=== PATIENT | female | born 1960 | race Caucasian/White ===

== ENCOUNTER → 2016-07-08 16:56 | Outpatient (CLI) | payer MEDICARE ==
[2014-02-26 08:43] VITALS: BMI 29.3
[~2016-07-08 16:56] MED LIST: ATARAX 25 MG TA25 MG PO; BAYER CHEWABLE81 MG PO; BUSPAR 15 MG TA15 MG PO; BUSPAR10 MG PO; BYSTOLIC10 MG PO; BYSTOLIC5 MG PO; DALIRESP500 MCG PO; DULERA 100 MCG8.8 GM INH; EFFEXOR XR150 MG PO; HYDROCODON-ACE1 EAC6 PO; HYDROXYZINE HCL50 MG PO; IPRAT-ALBUT 0.5-3 ML UPD; NAPROSYN125 MG/5 M; NAPROSYN500 MG PO; PRAVACHOL40 MG PO; SEROQUEL300 MG PO; SINGULAIR10 MG PO; SPIRIVA18 MCG INH; TRIGLIDE160 MG PO
== END | disposition home or self-care (01) ==
LOC: D.MAMMO 10:30
DX: N63 Unspecified lump in breast (principal)

== ENCOUNTER 2017-07-03 09:26 | Day surgery (SDC) | payer MEDICARE ==
[~2017-07-03] VITALS: Ht 152.4 cm; Wt 73.6 kg
--- NOTE | ~2017-07-03 | OP ---
PATIENT NAME: JOSE BEVERLY MEDICAL RECORD: [id number] :62 [facility] ADMISSION DATE: SURGEON: DEVAUGHN WHITNEY DO DATE OF OPERATION: 07/03/2017 PROCEDURE: EGD with biopsies. INDICATION FOR PROCEDURE: Heartburn, abnormal weight loss, diarrhea. SCOPE: Olympus video gastroscope. MEDICATION: Propofol 250 mg IV per anesthesia. ESTIMATED BLOOD LOSS: Minimal. COMPLICATIONS: None. FINDINGS: Informed consent was given. The patient was made comfortable with the above medication. After reaching an adequate level of sedation by slow IV push, the patient was placed on her left side. The endoscope was advanced under direct visualization through the mouth to the second portion of the duodenum. Within the esophagus itself, the mucosa of all portions had an appearance as if it was sloughing. Random biopsies were taken in the midesophagus for histology. At the GE junction, there was some evidence of LA class A reflux-induced esophagitis with a single superficial ulcer, also at the GE junction. There was no bleeding or bleeding stigmata associated with the ulceration. Cold forceps biopsies were taken at the GE junction to rule out Medellin's. The endoscope was advanced beyond the GE junction in the stomach and retroflexed to view the cardia or a small sliding hiatal hernia without ulcers or erosions present. The fundus of the stomach appeared normal. Throughout the body, antrum, and prepyloric regions, there were patchy areas of erythema, granularity, and some congestion consistent with gastritis. Random biopsies were taken to submit for histopathology and to rule out H. pylori. The endoscope was advanced beyond the pylorus into the duodenum, where the entire examined duodenum appeared normal. Regarding her symptoms of diarrhea, random biopsies were taken in the bulb and second portion of the duodenum to rule out flattening of the villi and to look for other etiologies that could cause loose stools. The endoscope was then withdrawn from the patient. The patient tolerated the procedure well and there were no complications. IMPRESSION: 1. LA class A reflux-induced esophagitis. 2. A single, superficial esophageal ulcer at the GE junction. 3. Small sliding hiatal hernia. 4. Gastritis. PLAN AND RECOMMENDATIONS: 1. Discharge home when recovery parameters are met. 2. Followup biopsy specimen results. 3. Omeprazole 40 mg daily in the a.m. times 60 days. If insurance does not cover this, I recommend an equivalent PPI at 40 mg daily dosing. 4. Proceed with colonoscopy as scheduled. TRANSINT:[id number] Voice Confirmation ID: [id number] DOCUMENT ID: [id number] OPERATIVE REPORT [id number] JOSE BEVERLY,DEVAUGHN Avalos DO at 1524 CC: [id number] DICTATION DATE: 07/03/17 1038 TELESERVICES REPRESENTATIVE: 07/03/[address] [facility] 07/03/[address] [address]
[2017-07-03] MEDS ORDERED: ANORO ELLIPTA1 EACH INH (09:52)
[2017-07-03 09:54] LABS: HEMATOCRIT 38.5 % (36.0-48.0); HEMOGLOBIN 12.5 g/dL (12-16); MCHC 32.5 g/dL (31.0-37.0); MCV 98.5 fL (80.0-100.0); MEAN PLATELET VOLUME 9.7 fL (7.4-10.4); RBC 3.91 10x6/uL (4.00-5.40); WBC 9.4 10x3/uL (4.8-10.8)
[2017-07-03 09:59] VITALS: BP 112/61; Ht 152.4 cm; Wt 73.6 kg
[2017-07-03 10:45] LABS: ANION GAP 14.1 mmol/L (8-16); CALCIUM 8.8 mg/dL (8.5-10.1); CARBON DIOXIDE 23.8 mmol/L (21.0-32.0); POTASSIUM - SERUM 3.9 mmol/L (3.5-5.1)
== END 2017-07-03 11:34 | disposition home or self-care (01) ==
LOC: D.OPS 09:26
PROVIDERS: Anesthesiology; Internal Medicine Gastroenterology
DX: K21.0 Gastro-esophageal reflux disease with esophagitis (principal); K44.9 Diaphragmatic hernia without obstruction or gangrene; K22.10 Ulcer of esophagus without bleeding; K29.70 Gastritis, unspecified, without bleeding; Z01.812 Encounter for preprocedural laboratory examination; R63.4 Abnormal weight loss

== ENCOUNTER 2017-07-10 08:14 | Day surgery (SDC) | payer MEDICARE ==
[~2017-07-10] VITALS: Ht 152.4 cm; Wt 73.6 kg
--- NOTE | ~2017-07-10 | OP ---
PATIENT NAME: JOSE BEVERLY MEDICAL RECORD: [id number] :62 LOCATION:D.[facility] ADMISSION DATE: SURGEON: DEVAUGHN WHITNEY DO DATE OF OPERATION: 07/10/2017 PROCEDURE: Colonoscopy with polypectomy. INDICATIONS FOR PROCEDURE: History of colon polyps, family history of colon cancer in her father, change in bowel habits, diarrhea, abnormal weight loss. SCOPE: Olympus video pediatric colonoscope. MEDICATIONS: Propofol 400 mg IV per anesthesia. WITHDRAWAL TIME: 20 minutes. ESTIMATED BLOOD LOSS: Minimal. COMPLICATIONS: None. FINDINGS: Informed consent was given. The patient was made comfortable with the above medication. After reaching an adequate level of sedation by slow IV push, the patient was placed on her left side. A digital rectal examination was performed and was normal. The endoscope was then advanced under direct visualization through the rectum to the cecum with visualization of the appendiceal orifice and ileocecal valve. The scope was slowly withdrawn. Mucosa was carefully examined. The prep quality was fair. An extensive amount of time was spent irrigating and aspirating fluid for better visualization of the wall of the colon. There were 5 polyps visualized on today's examination. The first was located in the descending colon. It was a benign appearing sessile polyp, which measured approximately 3 mm in diameter. It was removed in 1 piece using hot forceps and completely retrieved. There were 4 other polyps, which were benign-appearing and sessile located in the sigmoid colon. They ranged in size from 2-4 mm in diameter and all removed in 1 piece using hot forceps and completely retrieved. In the left side of the colon, there was moderate diverticulosis without diverticulitis involving the descending and sigmoid colon. Retroflexion was performed in the rectum with a normal appearing rectal wall. There were no other findings on this examination. The endoscope was withdrawn from the patient. The patient tolerated the procedure well and there were no complications. IMPRESSION: 1. Five polyps as described above, removed using hot forceps. 2. Moderate diverticulosis of the left side of the colon. 3. Otherwise, normal colonoscopy. Random biopsies were collected to rule out microscopic colitis and stool collection was performed to rule out infectious colitis. PLAN AND RECOMMENDATIONS: 1. Discharge home when recovery parameters are met. 2. High fiber diet. 3. Continue current medications. 4. Trial of dicyclomine 20 mg b.i.d. p.r.n. while awaiting biopsy results and stool studies. 5. Recall colonoscopy in 3-5 years. OPERATIVE REPORT [id number] JOSE BEVERLY TRANSINT:[id number] Voice Confirmation ID: [id number] DOCUMENT ID: [id number] DEVAUGHN WHITNEY DO at 1524 CC: [id number] DICTATION DATE: 07/10/17 1059 ORAL SURGERY ASSISTANT: 07/10/17 1306 [facility] 07/10/[address] [address]
[~2017-07-10 08:14] MED LIST changes: +ANORO ELLIPTA1 EACH INH
[2017-07-10] MEDS ORDERED: ESTRACE1 MG PO (08:41)
[2017-07-10] MEDS ORDERED: PROTONIX40 MG PO (08:42)
[2017-07-10] MEDS ORDERED: PREDNISONE5 MG PO (08:42)
[2017-07-10] MEDS ORDERED: BREO ELLIPTA 11 EACH INH (08:43)
[2017-07-10 08:50] VITALS: Ht 152.4 cm; Wt 73.6 kg
[2017-07-10 09:28] LABS: HEMOGLOBIN 12.7 g/dL (12-16); MCH 32.6 pg (26.0-34.0); MCHC 33.4 g/dL (31.0-37.0); MCV 97.4 fL (80.0-100.0); MEAN PLATELET VOLUME 9.7 fL (7.4-10.4); RBC 3.9 10x6/uL (4.00-5.40); RDW 13.7 % (11.5-14.5)
== END 2017-07-10 11:46 | disposition home or self-care (01) ==
LOC: D.OPS 08:14
PROVIDERS: Anesthesiology
DX: D12.5 Benign neoplasm of sigmoid colon (principal); Z80.0 Family history of malignant neoplasm of digestive organs; R63.4 Abnormal weight loss; R19.7 Diarrhea, unspecified; F17.200 Nicotine dependence, unspecified, uncomplicated; J45.909 Unspecified asthma, uncomplicated; J44.9 Chronic obstructive pulmonary disease, unspecified; K21.9 Gastro-esophageal reflux disease without esophagitis; Z01.812 Encounter for preprocedural laboratory examination

== ENCOUNTER 2017-12-10 10:28 | Inpatient (IN) | payer MEDICARE ==
[~2017-12-10] VITALS: Ht 152.4 cm; Wt 74.4 kg
--- NOTE | ~2017-12-10 | CN ---
PATIENT NAME:JOSE BEVERLY MEDICAL RECORD: [id number] : 62 LOCATION:D[facility] ADMIT DATE: 12/10/17 ACCOUNT: [id number] CONSULTING PHYSICIAN: ADELAIDE RILEY MD REFERRING PHYSICIAN: ROBERT HERNANDEZ MD DATE OF CONSULTATION: 12/10/2017 CONSULT REQUESTING PHYSICIAN: Robert Hernandez MD REASON FOR CONSULTATION: Acute exacerbation of COPD, pneumonia. HISTORY OF PRESENT ILLNESS: Ms. Beverly is a 57-year-old female who has a history of COPD. According to the patient, she was very sick. On Monday, she was seen at PCP's office, was given steroid injection as well as Levaquin, but the patient's shortness of breath was getting worse and the patient came into the ER. On evaluation, found out that she has infiltrate in right lower lobe. According to the patient, she has shortness of breath with mild exertion, even at rest. She is not sleeping because of the shortness of breath. She hears herself wheezing. There is cough with yellow-greenish color sputum production. REVIEW OF THE SYSTEMS: As in history of present illness. PAST MEDICAL HISTORY: 1. History of mild CVA. 2. COPD. 3. Peripheral vascular disease. 4. Coronary artery disease. 5. History of MD. 6. Bipolar disorder and depression. PAST SURGICAL HISTORY: 1. Cholecystectomy. 2. Cardiac catheterization and ablation procedure in the past. MEDICATIONS: [employer] was reviewed. ALLERGIES: SHE IS ALLERGIC TO IODINE. PERSONAL AND SOCIAL HISTORY: The patient is still current everyday smoker. She is nondrinker. FAMILY HISTORY: Noncontributory. PHYSICAL EXAMINATION: GENERAL: Now, the patient is lying comfortably in bed. She is not in acute distress. VITAL SIGNS: The blood pressure is 146/94, pulse is 87, respiration is 22, temperature is 97, SpO2 is 92% on 2 liters nasal cannula. HEENT: Conjunctivae are pink. Sclerae are not icteric. NECK: Neck is supple. No JVD. CHEST: There are crackles at the right base and wheeze on forceful expiration. HEART: Rhythm regular. Normal sound. No murmur. ABDOMEN: Abdomen is soft. Bowel sounds present. No hepatosplenomegaly. RECTAL: Deferred. CONSULT REPORT [id number] JOSE BEVERLY EXTREMITIES: No cyanosis. No clubbing. There is no pedal edema. SKIN: The skin is warm. Normal turgor. CENTRAL NERVOUS SYSTEM: The patient is awake and alert. There is no obvious cranial nerve abnormality. The gait was not tested. CHEST RADIOGRAPH: There is infiltrate in right lower lobe. LABORATORY DATA: CBC; WBC 11.9, hemoglobin 13.2, hematocrit 39, and platelet count 291. Chemistry; sodium 134, potassium 3.9, BUN is 6, creatinine is 1, and glucose 95. IMPRESSION: 1. Acute hypoxic respiratory failure. The pulse ox is 92% on 2 liters. 2. Acute exacerbation of COPD. 3. Pneumonia, right lower lobe, most likely community-acquired pneumonia. 4. Tobacco dependence syndrome. 5. Dyspnea on exertion. 6. Gastroesophageal reflux disease. 7. Peripheral vascular disease. RECOMMENDATION: 1. Continue supplemental oxygen. 2. Levaquin IV, Rocephin IV, methylprednisolone IV. 3. Singulair 10 mg a day. 4. Albuterol and ipratropium nebulizer q. 4 hourly. 5. Brovana and budesonide nebulizer b.i.d. 6. The patient was counseled to quit smoking. 7. Followup labs and chest radiograph. Dr. Hernandez, thank you for involving me in the care of Ms. Beverly. TRANSINT:[id number] Voice Confirmation ID: [id number] DOCUMENT ID: [id number] ADELAIDE RILEY MD CC: [id number] DICTATION DATE: 12/10/171742 DRY WALL INSTALLATIONS MECHANIC: 12/10/171948 ADM IN [place] [address] [place] [address]
[~2017-12-10 10:28] MED LIST changes: +BREO ELLIPTA 11 EACH INH; +ESTRACE1 MG PO; +PREDNISONE5 MG PO; +PROTONIX40 MG PO
[2017-12-10] MEDS ORDERED: INCRUSE ELLI62.5 MCG INH (10:33)
[2017-12-10] MEDS ORDERED: DALIRESP500 MCG PO (10:34)
[2017-12-10] MEDS ORDERED: BYSTOLIC2.5 MG PO (10:37)
[2017-12-10] MEDS ORDERED: LEVAQUIN750 MG PO (10:39)
[2017-12-10] MEDS ORDERED: BENTYL 20 MG TA20 MG PO (10:40)
[2017-12-10 10:43] LABS: BASOPHILS 0.2 % (0-2); EOSINOPHILS 0.3 % (0-7); HEMOGLOBIN 13.2 g/dL (12-16); IMMATURE GRANULOCYTES 0.3 % (0-5); LYMPHOCYTES 15.6 % (15-50); MCH 32.1 pg (26.0-34.0); MCHC 33.8 g/dL (31.0-37.0); MCV 94.9 fL (80.0-100.0); MEAN PLATELET VOLUME 9.7 fL (7.4-10.4); MONOCYTES 11.3 % (2-11); NEUTROPHILS 72.3 % (40-80); PLATELET COUNT 291 10x3/uL (130-400); RBC 4.11 10x6/uL (4.00-5.40); RDW 13.3 % (11.5-14.5); WBC 11.9 10x3/uL (4.8-10.8)
[2017-12-10 11:06] LABS: ALBUMIN 3.7 g/dL (3.4-5.0); ALKALINE PHOSPHATASE 43 U/L (46-116); ALT (SGPT) 24 U/L (10-68); BILIRUBIN - TOTAL 0.23 mg/dL (0.2-1.3); CALC OSMOLALITY 265 mosm/kg (275-300); CALCIUM 8.9 mg/dL (8.5-10.1); CARBON DIOXIDE 28.3 mmol/L (21.0-32.0); CHLORIDE - SERUM 99 mmol/L (98-107); GLUCOSE 95 mg/dL (74-106); POTASSIUM - SERUM 3.9 mmol/L (3.5-5.1); PROTEIN - SERUM 7.6 g/dL (6.4-8.2); SODIUM 134 mmol/L (136-145); UREA NITROGEN 6 mg/dL (7-18); eGFR NON AFRICAN AMERICAN 61 mL/min (90-120)
[2017-12-10 11:11] LABS: PRO BNP 231 pg/mL (0-125)
[2017-12-10 11:15] LABS: TROPONIN-I < 0.017 ng/mL (0.000-0.060)
[2017-12-10 13:27] VITALS: BMI 32.0
[2017-12-10 20:23] VITALS: BP 137/76
[2017-12-11 04:21] VITALS: BP 132/65
[2017-12-11 05:34] LABS: BASOPHILS 0 % (0-2); EOSINOPHILS 0 % (0-7); HEMATOCRIT 36.7 % (36.0-48.0); HEMOGLOBIN 12.3 g/dL (12-16); IMMATURE GRANULOCYTES 0.3 % (0-5); MCH 31.7 pg (26.0-34.0); MCHC 33.5 g/dL (31.0-37.0); MCV 94.6 fL (80.0-100.0); MEAN PLATELET VOLUME 9.7 fL (7.4-10.4); MONOCYTES 4.9 % (2-11); NEUTROPHILS 84.8 % (40-80); PLATELET COUNT 279 10x3/uL (130-400); RBC 3.88 10x6/uL (4.00-5.40); RDW 13.3 % (11.5-14.5)
[2017-12-11 05:45] LABS: WBC 6.5 10x3/uL (4.8-10.8)
[2017-12-11 05:56] LABS: ALBUMIN 3.4 g/dL (3.4-5.0); BILIRUBIN - TOTAL 0.28 mg/dL (0.2-1.3); CALCIUM 8.7 mg/dL (8.5-10.1); CARBON DIOXIDE 28.7 mmol/L (21.0-32.0); CREATININE - SERUM 0.9 mg/dL (0.6-1.3)
[2017-12-11 05:59] LABS: ANION GAP 10.6 mmol/L (8-16); POTASSIUM - SERUM 3.3 mmol/L (3.5-5.1)
[2017-12-11 08:20] VITALS: BP 145/76
[2017-12-11 11:53] VITALS: BP 129/72
[2017-12-11 13:12] VITALS: Ht 152.4 cm; Wt 74.4 kg
[2017-12-11 16:20] VITALS: BP 122/61
[2017-12-11 22:48] VITALS: BP 124/61
[2017-12-12 04:35] VITALS: BP 105/65
[2017-12-12 05:34] LABS: BASOPHILS 0 % (0-2); EOSINOPHILS 0 % (0-7); HEMATOCRIT 35.3 % (36.0-48.0); HEMOGLOBIN 11.9 g/dL (12-16); LYMPHOCYTES 13.5 % (15-50); MCH 31.8 pg (26.0-34.0); MCHC 33.7 g/dL (31.0-37.0); MCV 94.4 fL (80.0-100.0); MEAN PLATELET VOLUME 9.8 fL (7.4-10.4); MONOCYTES 7.6 % (2-11); NEUTROPHILS 77.9 % (40-80); PLATELET COUNT 296 10x3/uL (130-400); RBC 3.74 10x6/uL (4.00-5.40); RDW 13.5 % (11.5-14.5)
[2017-12-12 05:43] LABS: WBC 11.5 10x3/uL (4.8-10.8)
[2017-12-12 05:53] LABS: ALBUMIN 3.1 g/dL (3.4-5.0); ANION GAP 9.5 mmol/L (8-16); BILIRUBIN - TOTAL 0.26 mg/dL (0.2-1.3); CALCIUM 8.6 mg/dL (8.5-10.1); CARBON DIOXIDE 29.2 mmol/L (21.0-32.0); POTASSIUM - SERUM 3.7 mmol/L (3.5-5.1); PROTEIN - SERUM 6.5 g/dL (6.4-8.2)
[2017-12-12 05:55] LABS: CREATININE - SERUM 1.2 mg/dL (0.6-1.3)
[2017-12-12 08:03] VITALS: BP 113/60
[2017-12-12 11:59] VITALS: BP 115/63
[2017-12-12] MEDS ORDERED: MEDROL DOSE PACK4 MG PO (13:27)
[2017-12-12] MEDS ORDERED: LEVAQUIN750 MG PO (13:28)
== END 2017-12-12 16:54 | disposition home or self-care (01) | DRG 177 ==
LOC: D.ER 10:28 → D.EDHOLD 12:28 → D.MS 12:28
PROVIDERS: Family Medicine
DX: J15.6 Pneumonia due to other Gram-negative bacteria (principal); J96.01 Acute respiratory failure with hypoxia; J44.0 Chronic obstructive pulmonary disease with (acute) lower respiratory infection; J44.1 Chronic obstructive pulmonary disease with (acute) exacerbation; F31.9 Bipolar disorder, unspecified; K21.9 Gastro-esophageal reflux disease without esophagitis; I73.9 Peripheral vascular disease, unspecified; I69.392 Facial weakness following cerebral infarction; E78.5 Hyperlipidemia, unspecified; I25.10 Atherosclerotic heart disease of native coronary artery without angina pectoris; E87.6 Hypokalemia; F17.200 Nicotine dependence, unspecified, uncomplicated

== ENCOUNTER → 2018-03-09 09:08 | Outpatient (CLI) | payer MEDICARE ==
[2017-12-11 13:12] VITALS: BMI 32.0
[~2018-03-09 09:08] MED LIST changes: +BENTYL 20 MG TA20 MG PO; +BYSTOLIC2.5 MG PO; +INCRUSE ELLI62.5 MCG INH; +LEVAQUIN750 MG PO; +MEDROL DOSE PACK4 MG PO
== END | disposition home or self-care (01) ==
LOC: D.RT 09:00
DX: R93.89 Abnormal findings on diagnostic imaging of other specified body structures (principal); J44.9 Chronic obstructive pulmonary disease, unspecified

== ENCOUNTER 2018-04-04 10:57 | Outpatient (CLI) | payer MEDICARE ==
[~2018-04-04] VITALS: Ht 152.4 cm; Wt 77.3 kg
--- NOTE | ~2018-04-04 | HEMODYNAMI ---
PATIENT:JOSE BEVERLY MEDICAL RECORD: [id number] : 62 [facility] ADMISSION DATE: 04/04/18 Generatedon:04/04/201813:25 Patient name: JOSE BEVERLY Patient #: [id number] SSN: : 1960 Date of study: 04/04/2018 Page: Of Hemodynamic Procedure Report Patient Data Patient Demographics Procedure consent was obtained First Name: JOSE Gender: Female Last Name: SIRIA : 1960 Middle Initial: A Age: 57 year(s) Patient #: [id number] Race: Additional ID: [id number] Contact details Address: [address] [place] [address] State: [place] City: [facility] Zip code: [address] Admission Admission Data Admission Date: 04/04/2018 Admission Time: 10:57 Procedure Procedure Types Cath Procedure Diagnostic Procedure LHC LHC w/Coronaries Procedure Description Procedure Date Procedure Date: 04/04/2018 Procedure Start Time: 13:08 Procedure End Time: 13:23 Procedure Staff Name Function Logan Hurley MD Performing Physician Grace Tovar RT Monitor No Barone RT Scrub Conchis Zimmerman RN Nurse Procedure Data Cath Procedure Fluoroscopy Diagnostic fluoroscopy Total fluoroscopy Time: 1.9 time: 1.9 min min Diagnostic fluoroscopy Total fluoroscopy dose: 424 dose: 424 mGy mGy Contrast Material Contrast Material Type Amount (ml) Isovue 300 46 Entry Location Entry Primary Successful Side Size Upsize Upsize Entry Closure Christie ccessful Closure Location (Fr) 1 (Fr) 2 (Fr) Remarks Device Remarks Radial Right 6 Fr Mechanical artery Short Compression Estimated blood loss: 5 ml Diagnostic catheters Device Type Used For End Catheter Placement DIAGNOSTIC [place] 110cm 5 Multi-vessel Fr catheter ([id number]) Angiography Procedure Complications No complications Procedure Medications Medication Administration Route Dosage 0.9% NaCl I.V. 100 ml/hr Oxygen etCO2 Nasal cannula 2 l/min Lidocaine 2% added to field 20 Heparin Flush Bag added to field 2 bags (1000units/500ml NS) Radial Cocktail added to field 1 syringe (Verapomil 2mg/Nitro 400mcg/Heparin 1500units) Versed I.V. 2 mg Fentanyl I.V. 50 mcg Versed I.V. 2 mg Fentanyl I.V. 50 mcg Versed I.V. 1 mg Hemodynamics Rest Heart Rate: 81 (bpm) Pressure Samples Time Site Value (mmHg) Purpose Heart Use Rate(bpm) 13:17 LV 141/-1,12 Snapshot 106 13:18 AO 129/74(99) Pullback 78 13:18 LV 86/4,11 Pullback 78 Gradients Valve Time Site 1 Site 2 Mean SEP/DFP Peak To Heart Use (mmHg) (sec/min) Peak Rate (mmHg) (bpm) Aortic 13:18 LV AO 0 78 86/4,11 129/74(99) Calculations Valve P-P Mean Valve Index Valve Source Name Gradient Area Flow (cm2) Aortic 0 0 Snapshots Pre Cath Intra NCS Post Cath Vital Signs Time Heart Resp SPO2 etCO2 NIBP (mmHg) Rhythm Pain Sedation Rate (ipm) (%) (mmHg) Status Level (bpm) 12:53:53 72 15 99 36.9 132/70(97) NSR 0 (11) 10(A) , No pain 12:58:05 89 22 98 29.3 130/70(105) NSR 0 (11) 10(A) , No pain 13:02:19 83 22 96 26 122/74(91) NSR 0 (11) 10(A) , No pain 13:06:33 84 20 97 26.5 124/67(91) NSR 0 (11) 9(A) , No pain 13:10:43 83 22 97 30.1 121/70(84) NSR 0 (11) 10(A) , No pain 13:14:54 83 23 96 27.8 124/74(94) NSR 0 (11) 10(A) , No pain 13:19:06 87 19 97 28.6 111/62(75) NSR 0 (11) 9(A) , No pain 13:23:16 88 23 98 23.3 114/68(81) NSR 0 (11) 10(A) , No pain Medications Time Medication Route Dose Verified Delivered Reason Notes E ffectiveness by by 12:53:20 0.9% NaCl I.V. 100 Logan Conchis used for ml/hr Xavi Zimmerman temp recruiter 12:53:27 Oxygen etCO2 2 l/min Logan Conchis used for Nasal Xavi Zimmerman procedure cannula RN 12:53:33 Lidocaine 2% added 20ml Logan Logan for local to vial Xavi Hurley MD anesthetic field 12:53:38 Heparin Flush added 2 bags Logan Logan used for Bag to Xavi Hurley MD procedure (1000units/500ml field NS) 12:53:43 Radial Cocktail added 1 Logan Logan used for (Verapomil to syringe Xavi Hurley MD procedure 2mg/Nitro field 400mcg/Heparin 1500units) 13:03:41 Versed I.V. 2 mg Logan Conchis for Xavi Zimmerman sedation RN 13:03:51 Fentanyl I.V. 50 mcg Logan Conchis for Xavi Zimmerman sedation RN 13:10:31 Versed I.V. 2 mg Logan Conchis for Xavi Zimmerman sedation RN 13:10:44 Fentanyl I.V. 50 mcg Logan Conchis for Xavi Zimmerman sedation RN 13:17:38 Versed I.V. 1 mg Logan Conchis for Xavi Zimmerman sedation colon and rectal surgeon Log Time Note 12:32:18 Informed consent obtained and on chart 12:40:54 Diagnostic Cath Status : Elective 12:41:21 Conchis Zimmerman RN sent for patient. Start room use. 12:41:22 Time tracking: Regular hours (M-F 7:00 - 5:00) 12:41:30 Plan of Care:Hemodynamics will remain stable., Cardiac rhythm will remain stable., Comfort level will be maintained., Respiratory function will remain adequate., Patient/ family verbilizes understanding of procedure., Procedure tolerated without complication., Recovers from procedure without complications.. 12:47:17 Patient received from Pre/Post Procedure Room to CCL 1 Alert and oriented. Tansferred to table in Supine position. 12:47:19 Warm blankets applied, and evangelista hugger turned on for patient comfort. 12:47:19 Correct patient and procedure confirmed by team. 12:47:20 ECG and BP/O2 sat monitors applied to patient. 12:52:44 Vital chart was started 12:53:20 0.9% NaCl 100 ml/hr I.V. was administered by Conchis Zimmerman RN; used for procedure; 12:53:27 Oxygen 2 l/min etCO2 Nasal cannula was administered by Conchis Zimmerman RN; used for procedure; 12:53:33 Lidocaine 2% 20ml vial added to field was administered by Logan Hurley MD; for local anesthetic; 12:53:38 Heparin Flush Bag (1000units/500ml NS) 2 bags added to field was administered by Logan Hurley MD; used for procedure; 12:53:43 Radial Cocktail (Verapomil 2mg/Nitro 400mcg/Heparin 1500units) 1 syringe added to field was administered by Logan Hurley MD; used for procedure; 12:58:30 Baseline sample Acquired. 12:58:34 Rhythm: sinus rhythm 12:58:40 Full Disclosure recording started 12:58:45 H&P Date Dictated: 04/04/2018 Within 30 days and on chart.. 12:58:48 Pre-procedure instructions explained to patient. 12:58:48 Pre-op teaching completed and patient verbalized understanding. 12:58:49 Family in waiting room. 12:58:51 Patient NPO since Midnight. 12:58:53 Is the patient allergic to Iodine/contrast media? Yes. 12:58:56 Was the patient premedicated? Yes 12:58:58 Is patient on blood thinner?No 12:58:59 Patient diabetic? No. 12:59:02 Previous problem with sedation/anesthesia? No ? 12:59:05 Snore? Yes 12:59:06 Sleep apnea? No 12:59:07 Deviated septum? No 12:59:07 Opens mouth fully? Yes 12:59:09 Sticks out tongue? Yes 12:59:12 Airway obstruction? Yes copd 12:59:21 Dentures? Yes partials in tight 13:01:19 Zero performed for pressure channel P1 13:02:22 Pre procedure: right dorsailis pedis pulse 2+ Normal; easily identifiable; not easily obliterated 13:02:25 Pre procedure: left dorsailis pedis pulse 2+ Normal; easily identifiable; not easily obliterated 13:02:30 IV patent on arrival in left forearm with 0.9% NaCl at [facility]. 13:02:33 Lab results completed and on chart. 13:02:40 Right Radial & Right Groin area was prepped with chlora-prep and draped in sterile fashion 13:02:42 Alarms reviewed by R. N. 13:02:42 Sharps counted by scrub and verified by R.N. 13::44 Physician arrived 13::44 --------ALL STOP TIME OUT------ 13::44 Final Timeout: patient, procedure, and site verified with staff and physician. All members of the team are in agreement. 13:02:47 Right Radial & Right Groin site verified by team. 13:02:49 Physical assessment completed. ASA score P 2 - A patient with mild systemic disease as per Logan Hurley MD. 13:02:54 Sedation plan: IV Moderate Sedation Medication:Versed, Fentanyl 13:03:01 Use device set Radial Dx or PCI 13:03:02 ACIST Syringe (93352) opened to sterile field. 13:03:02 Medline Cath Pack ([id number]) opened to sterile field. 13:03:02 Bag Decanter (2002S) opened to sterile field. 13:03:03 DIAGNOSTIC WIRE .035 260cm J wire (051127) opened to sterile field. 13:03:03 ACIST Hand Control (06455) opened to sterile field. 13:03:04 ACIST Manifold (80688) opened to sterile field. 13:03:04 Tegaderm 4 x 4 (1626W) opened to sterile field. 13:03:05 MBrace Wrist Support ([id number]) opened to sterile field. 13:03:06 SHEATH 6FR Slender (64-1060) opened to sterile field. 13:03:41 Versed 2 mg I.V. was administered by Conchis Zimmerman RN; for sedation; 13:03:51 Fentanyl 50 mcg I.V. was administered by Conchis Zimmerman RN; for sedation; 13:08:49 Procedure started. 13:08:57 Local anesthetic to right radial artery with Lidocaine 2% by Logan Hurley MD.INITIAL ACCESS ONLY 13:10:31 Versed 2 mg I.V. was administered by Conchis Zimmerman RN; for sedation; 13:10:44 Fentanyl 50 mcg I.V. was administered by Conchis Zimmerman RN; for sedation; 13:11:11 A 6 Fr Short sheath was inserted into the Right Radial artery 13:16:20 A DIAGNOSTIC [place] 110cm 5 Fr catheter (262970) was advanced over the wire and used for Multi-vessel Angiography. 13:17:38 Versed 1 mg I.V. was administered by Conchis Zimmerman RN; for sedation; 13:17:52 LV hemodynamics recorded. 13:17:53 LV gram done using VALENZUELA 13:17:56 Injector settings: Ml/sec: 5, Volume: 15, 13:18:07 EF : 60 % 13:18:27 LCA angiography performed. 13:18:30 Injector settings: Ml/sec: 3, Volume: 6, 13:20:18 RCA angiography performed. 13:20:21 Injector settings: Ml/sec: 3, Volume: 6, 13:20:49 Catheter removed. 13:21:56 TR BAND Standard ([id number]) opened to sterile field. 13:22:12 Sheath removed intact; hemostasis achieved with Mechanical Compression to the Right Radial artery. 13:22:14 Procedure ended.(Physican Out) 13:22:26 Fluoroscopy time 01.90 minutes. 13:22:34 Fluoroscopy dose: 424 mGy 13:22:34 Flurop Dose total: 424 13:22:38 Contrast amount:Isovue 300 46ml. 13:22:41 Sharps counted by scrub and verified by R.N. 13:22:41 Insertion/operative site no bleeding no hematoma. 13:22:47 Post right radial artery:stable 13:22:50 Post Procedure Pulses reassessed and unchanged 13:22:54 Post procedure rhythm: unchanged. 13:22:57 Estimated blood loss: 5 ml 13:22:58 Post procedure instruction explained to patient.Patient verbalizes understanding. 13:22:59 Patient needs reinforcement of post procedure teaching. 13:23:13 Procedure and supply charges have been captured, reviewed, submitted and are correct. 13:23:18 Procedure Complication : No complications 13:23:21 Vital chart was stopped 13:23:21 See physician's report for complete and final results. 13:23:27 Report given to Pre/Post Procedure Room. 13:23:29 Patient transfered to Pre/Post Procedure Room with Stretcher. 13:23:33 Procedure ended. 13:23:33 Full Disclosure recording stopped 13:23:50 End room use (Document Last) Device Usage Item Name Manufacture Quantity Catalog Hospital Part Current Minimal Lot# / Number Charge Number Stock Stock Serial# Code ACIST Acist 1 00866 275175 [id number] [id number] 20 Syringe Medical (63074) Systems Inc Medline Medline 1 [id number] 817112 78798 907954 5 Cath Pack ([id number]) Bag Microtek 1 2002S 432209 05831 375435 5 Decanter Medical Inc. (2001S) DIAGNOSTIC [place] 1 [id number] 478853 741729 155294 30 WIRE .035 260cm J wire (706314) ACIST Hand Acist 1 61906 455953 715639 227654 5 Control Medical (77211) Systems Inc ACIST Acist 1 21529 923597 809937 521062 5 Manifold Medical (89101) Systems Inc Tegaderm 4 3M 1 1626W 955070 441334 235336 5 x 4 (1626W) MBrace Advanced 1 140-0250-00 724686 14520 921585 5 Wrist Vascular Support Dynamics ([id number]) SHEATH 6FR Terumo 1 [id number] 242114 968628 744465 5 Slender (80-1060) DIAGNOSTIC Terumo 1 40-2840 101682 718787 497365 5 [place] 110cm 5 Fr catheter (715218) TR BAND Terumo 1 [id number] 445953 141317 096923 40 Standard ([id number]) Signature Audit Jewell Stage Time Signature Unsigned Intra-Procedure 04/04/2018 Grace Tovar 1:25:37 PM RT(R) Signatures Monitor : Grace Tovar RT Signature : Date : Time : [facility] [address] [place] [address]
[2018-04-04] MEDS ORDERED: METAMUCIL PACKE1 PKT PO (11:26)
[2018-04-04 11:37] VITALS: BP 136/64; Ht 152.4 cm; Wt 77.3 kg
[2018-04-04 11:41] LABS: BASOPHILS 0 % (0-2); EOSINOPHILS 0 % (0-7); HEMATOCRIT 35.1 % (36.0-48.0); HEMOGLOBIN 11.9 g/dL (12-16); IMMATURE GRANULOCYTES 0.3 % (0-5); LYMPHOCYTES 4.8 % (15-50); MCH 31.6 pg (26.0-34.0); MCHC 33.9 g/dL (31.0-37.0); MCV 93.4 fL (80.0-100.0); MEAN PLATELET VOLUME 9.6 fL (7.4-10.4); MONOCYTES 2.8 % (2-11); NEUTROPHILS 92.1 % (40-80); PLATELET COUNT 352 10x3/uL (130-400); RBC 3.76 10x6/uL (4.00-5.40); RDW 13.7 % (11.5-14.5); WBC 13.1 10x3/uL (4.8-10.8)
[2018-04-04 11:49] LABS: ANION GAP 16.1 mmol/L (8-16); CALCIUM 9.4 mg/dL (8.5-10.1); POTASSIUM - SERUM 4.1 mmol/L (3.5-5.1)
--- NOTE | 2018-04-04 13:41 | NUR ---
RECIEVED TO ROOM VIA STRETCHER FROM ASSOCIATE SOFTWARE DEVELOPMENT ENGINEER WITH TR BAND TO R/WRIST CDI NO BLEEDING OR HEMATOMA NOTED. PATIENT CONNECTED TO MONITOR FOR OBSERVATION WITH HR 84 BP 116/62 CHEST PAIN IS DENIED
--- NOTE | 2018-04-04 14:03 | NUR ---
TR BAND TO R/WRIST IS CDI WITH CHEST PAIN DENIED PATIENT TOLERATING SANDWICH AND SODA. FAMILY IS PRESENT TO ASSIST
--- NOTE | 2018-04-04 14:23 | NUR ---
TR BAND TO R/WRIST IS CDI WITH NO COMPLAINTS
--- NOTE | 2018-04-04 14:40 | NUR ---
3 CC AIR REMOVED FROM TR BAND WITH NO BLEEDING OR HEMATOMA NOTED.
--- NOTE | 2018-04-04 14:52 | NUR ---
3 CC AIR REMOVED FROM TR BAND WITH NO BLEEDING OR HEMATOMA
--- NOTE | 2018-04-04 15:15 | NUR ---
LEFT HAND PIV D/C'D WITH CATHETER INACT, BAND AID TO SITE. UP TO BEDSIDE TO GET DRESSED.
--- NOTE | 2018-04-04 15:22 | NUR ---
REMAINING AIR REMOVED FROM TR BAND WITH NO BLEEDING NOTED. DRESSING PLACED TO SITE. DISCHARGE INSTRUCTIONS GIVEN, VERBALIZED UNDERSTANDING.
--- NOTE | 2018-04-04 15:30 | NUR ---
TAKEN OUT VIA WHEELCHAIR BY CATH MERCHANDISING INTERN. LEFT FACILITY WITH FAMILY AND ALL PERSONAL BELONGINGS.
== END 2018-04-04 15:30 | disposition home or self-care (01) ==
LOC: D.CATH 10:57
PROVIDERS: Internal Medicine Cardiovascular Disease
DX: I25.110 Atherosclerotic heart disease of native coronary artery with unstable angina pectoris (principal)

== ENCOUNTER 2018-05-31 20:28 | Emergency (ER) | payer MEDICARE ==
[~2018-05-31] VITALS: Ht 152.4 cm; Wt 73.2 kg
[~2018-05-31 20:28] MED LIST changes: +METAMUCIL PACKE1 PKT PO
[2018-05-31 20:32] VITALS: Ht 152.4 cm; Wt 73.2 kg
[2018-05-31 21:00] LABS: BASOPHILS 0.2 % (0-2); EOSINOPHILS 0.1 % (0-7); HEMATOCRIT 33.4 % (36.0-48.0); HEMOGLOBIN 10.9 g/dL (12-16); LYMPHOCYTES 11.8 % (15-50); MCHC 32.6 g/dL (31.0-37.0); MEAN PLATELET VOLUME 8.8 fL (7.4-10.4); MONOCYTES 5.5 % (2-11); NEUTROPHILS 77.4 % (40-80); RBC 3.63 10x6/uL (4.00-5.40); RDW 14.3 % (11.5-14.5); WBC 15.1 10x3/uL (4.8-10.8)
[2018-05-31 21:05] LABS: PLATELET COUNT 453 10x3/uL (130-400)
[2018-05-31 21:14] LABS: APTT 24.8 SECONDS (22.8-39.4); INR 0.94 (0.85-1.17); PROTIME 12.1 SECONDS (11.6-15.0)
[2018-05-31 21:17] LABS: ALBUMIN 2.8 g/dL (3.4-5.0); ALKALINE PHOSPHATASE 88 U/L (46-116); ALT (SGPT) 20 U/L (10-68); BILIRUBIN - TOTAL 0.15 mg/dL (0.2-1.3); CALC OSMOLALITY 278 mosm/kg (275-300); CALCIUM 8.7 mg/dL (8.5-10.1); CARBON DIOXIDE 26.5 mmol/L (21.0-32.0); CHLORIDE - SERUM 101 mmol/L (98-107); CREATININE - SERUM 1.2 mg/dL (0.6-1.3); GLUCOSE 110 mg/dL (74-106); POTASSIUM - SERUM 3.9 mmol/L (3.5-5.1); PROTEIN - SERUM 6.7 g/dL (6.4-8.2); SODIUM 138 mmol/L (136-145); UREA NITROGEN 17 mg/dL (7-18); eGFR NON AFRICAN AMERICAN 49 mL/min (90-120)
[2018-05-31 21:30] LABS: CKMB 0.7 U/L (0.0-3.6); CREATINE KINASE 39 UL (21-215); PRO BNP 324 pg/mL (0-125); TROPONIN-I < 0.017 ng/mL (0.000-0.060)
[2018-05-31 23:03] LABS: APPEARANCE CLEAR (CLEAR); COLOR YELLOW (YELLOW)
[2018-05-31 23:04] LABS: BILIRUBIN NEGATIVE (NEGATIVE); GLUCOSE NEGATIVE (NEGATIVE); KETONE NEGATIVE (NEGATIVE); NITRITE NEGATIVE (NEGATIVE); PROTEIN NEGATIVE (NEGATIVE); UROBILINOGEN NORMAL (NORMAL)
[2018-05-31 23:05] LABS: BACTERIA FEW /hpf (NONE SEEN); EPITHELIAL CELLS 0-5 /hpf (0-5); RED CELLS - URINE 0-5 /hpf (0-5); WHITE CELLS - URINE 0-5 /hpf (0-5)
[2018-06-01] MEDS ORDERED: MECLIZINE HCL25 MG PO (02:26)
[2018-06-01 02:36] VITALS: BP 128/47
== END 2018-06-01 02:36 | disposition home or self-care (01) ==
LOC: D.ER 20:28
PROVIDERS: Family Medicine
DX: R42 Dizziness and giddiness (principal)

== ENCOUNTER → 2018-11-15 11:17 | Outpatient (CLI) | payer MEDICARE ==
[2018-05-31 20:32] VITALS: BMI 31.5
[~2018-11-15 11:17] MED LIST changes: +MECLIZINE HCL25 MG PO
== END | disposition home or self-care (01) ==
LOC: D.HCCARDIO 11:17
PROVIDERS: ATTEND Internal Medicine Cardiovascular Disease
DX: I25.118 Atherosclerotic heart disease of native coronary artery with other forms of angina pectoris (principal)